=== PATIENT | female | born 1975 | race Caucasian/White ===

== ENCOUNTER 2016-07-18 23:50 | Emergency (ER) | payer OTHER ==
[~2016-07-18 23:50] MED LIST: ACETAMINOPHEN PO; ALBUTEROL17 GM INH; ALPRAZOLAM PO; AMOXICILLIN500 M1 PO; BACTRIM DS TABL1 TA1 PO; BENTYL20 MG DOB; CETIRIZINE HCL10 MG PO; CIPRO PO; DARVOCET-N 1001 TAB PO; FLAGYL PO; FLEXERIL10 M1 PO; FLEXERIL10 MG PO; FLONASE16 GM; GUAIFENESIN400 MG PO; HYDRALAZINE HCL50 MG PO; IBUPROFEN PO; KETOPROFEN PO; LEVAQUIN PO; LEVAQUIN750 M1 PO; LOMOTIL TABLET1 TAB PO; LORTAB 5/500 TA1 TA1 PO; LORTAB 7.5-5001 TAB PO; LORTAB 7.51 TAB PO; MACROBID100 MG PO; NAPROXEN SODIU500 MG PO; NO MEDICATIONS; OMEPRAZOLE20 M2 PO; PEPCID PO; PERCOCET5/325 PO; PHENERGAN DM1 ML PO; PHENERGAN PO; PHENERGAN25 MG PO; PREDNISONE PO; PRILOSEC PO; PROTONIX PO; ROBAXIN500 MG PO; RONDEC DM PO; SKELAXIN PO; ULTRAM PO; VICODIN 5/500 T1 TAB PO; VICODIN PO; VISTARIL50 MG PO; VOLTAREN50 MG PO; VOLTAREN75 MG PO; ZANTAC PO; ZANTAC150 M1 PO; ZITHROMAX PO; ZITHROMAX1 G/PKT PO; ZOFRAN ODT4 MG PO; ZOFRAN PO; ZOFRANODT PO
== END 2016-07-19 01:21 | disposition home or self-care (01) ==
LOC: CED 23:50
DX: S00.262A Insect bite (nonvenomous) of left eyelid and periocular area, initial encounter (principal); K21.9 Gastro-esophageal reflux disease without esophagitis; I10 Essential (primary) hypertension; E11.9 Type 2 diabetes mellitus without complications; Z88.0 Allergy status to penicillin; Z88.5 Allergy status to narcotic agent; Z88.8 Allergy status to other drugs, medicaments and biological substances; Z98.51 Tubal ligation status; Z90.49 Acquired absence of other specified parts of digestive tract; Z90.710 Acquired absence of both cervix and uterus; W57.XXXA Bitten or stung by nonvenomous insect and other nonvenomous arthropods, initial encounter
CPT/HCPCS: 82947; 99282

== ENCOUNTER 2016-07-26 16:14 | Emergency (ER) | payer OTHER ==
--- NOTE | ~2016-07-26 | CT102 ---
[facility] A Service of [facility] RADIOLOGY TEXT RESULTS PATIENT: LESLIE KNOTT LOCATION: CFTX : 75 UNIT #: [id number] AGE: [address]: Jennifer Walton APRN SEX: F ORDER DR: [id number] [facility]. [place], [place] [address] [id number] E MR#: [id number] Acc #: [id number] NAME: LESLIE KNOTT : 1975 SEX: F STUDY DATE/TIME: 07/26/2016 18:13 UNIT: [facility] ROOM: STUDY DESCRIPTION: CT Orbits W Contrast Attending Physician: Jennifer Walton A.P.R.N. Ordering Physician: Dickson Graham M.D. Primary Care Physician: Keaton Bermudez M.D. MEDICAL IMAGING REPORT This report is preliminary unless electronic signature is present EXAM CT of the orbits HISTORY Left eye swelling, burning and blurred vision for 1 week. TECHNIQUE Transaxial imaging of the orbits was performed with an IV bolus of contrast media. Multiplanar reconstructions were obtained and reviewed. This CT exam was performed with one or more of the following radiation dose reduction techniques: automatic exposure control, adjustment of mA and/or kV according to patient size, and iterative reconstruction. FINDINGS The examination shows preseptal soft tissue swelling in the left infraorbital region involving the left lid laterally. Globes themselves are symmetric and appear normal. No retrobulbar masses or fluid collections or abnormal enhancement are identified. Muscle groups appear unremarkable. Optic nerves appear symmetric. There is no evidence of bone erosion or destruction. No well-defined fluid collections are seen to suggest an abscess. Bone windows are reviewed and are unremarkable. CONCLUSION Preseptal soft tissue swelling in the region of the left lid. No well-defined fluid collection or abscess are seen. There is no evidence of retroseptal or retrobulbar soft tissue swelling or abnormalities. The orbits appear normal. Dictated by... Lalo Nguyen M.D. THIS IS AN ELECTRONICALLY VERIFIED REPORT [facility]. [facility] A Service of [facility] RADIOLOGY TEXT RESULTS PATIENT: LESLIE KNOTT LOCATION: [facility] : 75 UNIT #: [id number] AGE: [address]: Jennifer Walton APRN SEX: F ORDER DR: Lalo Nguyen M.D. at 07/30/2016 5:10 PM TRENT/isabel TD: 07/27/2016 08:15 JOB #: [id number] MEDICAL IMAGING REPORT Page 1 of 1 COPY
[2016-07-26 17:12] LABS: BASOPHIL% 0.5 % (0-2.5); DIFF IND NO; EOSINOPHIL# 0.2 X10e3 (0-0.7); EOSINOPHIL% 2.1 % (0.0-7.0); HEMOGLOBIN 12.7 gm/dL (12.0-16.0); LYMPHOCYTE# 2.7 X10e3 (1.0-3.5); LYMPHOCYTE% 28.6 % (17.0-45.0); MEAN CELL VOLUME 79.2 FL (83-96); MEAN CORPUSCULAR HEMOGLOBIN 25.8 PG (28-34); MEAN CORPUSCULAR HGB CONC 32.6 g/dL (30-36); MEAN PLATELET VOLUME 8.2 FL (6.5-11.5); MONOCYTE# 0.5 X10e3 (0-1.0); MONOCYTE% 5.3 % (3.0-12.0); NEUTROPHIL# 6.1 X10e3 (1.5-7.1); NEUTROPHIL% 63.5 % (40-75); PLATELET COUNT 238 X10e3 (140-420); RED BLOOD COUNT 4.93 X10e (3.90-5.30); RED CELL DISTRIBUTION WIDTH 14.8 % (11.0-15.5); WHITE BLOOD COUNT 9.6 X10e3 (4.0-10.5)
[2016-07-26 18:01] LABS: BLOOD UREA NITROGEN 13 mg/dL (9-23); BUN/CREATININE RATIO 18.57; CALCIUM SERUM 9.7 mg/dL (8.4-10.2); CARBON DIOXIDE 29 mmol/L (22-31); CHLORIDE 103 mmol/L (100-111); CREATININE SERUM 0.7 mg/dL (0.6-1.4); GLOM FILT RATE Estimated ABOVE60 mL/min (>60); GLUCOSE FASTING 77 mg/dL (70-110); POTASSIUM 3.9 mmol/L (3.5-5.1); SODIUM 141 mmol/L (135-145)
== END 2016-07-26 19:20 | disposition home or self-care (01) ==
LOC: CFTX 16:14
PROVIDERS: Nurse Practitioner
DX: H57.8 Other specified disorders of eye and adnexa (principal); E11.9 Type 2 diabetes mellitus without complications; J44.9 Chronic obstructive pulmonary disease, unspecified; Z88.8 Allergy status to other drugs, medicaments and biological substances; Z88.0 Allergy status to penicillin; Z88.5 Allergy status to narcotic agent
CPT/HCPCS: 36415; 70481; 80048; 82947; 85025; 99284; Q9967